=== PATIENT | male | born 1990 | race Two or more races ===

== ENCOUNTER → 2017-03-11 | Outpatient (CLI) | payer OTHER | LOC: BMCIMAGING 11:12 | PROVIDERS: ATTEND Emergency Medicine | DX: S52.614A Nondisplaced fracture of right ulna styloid process, initial encounter for closed fracture (principal) ==

== ENCOUNTER → 2017-03-19 | Outpatient (CLI) | payer OTHER | LOC: BMCIMAGING 11:24 | PROVIDERS: ATTEND Orthopaedic Surgery Hand Surgery | DX: S52.614D Nondisplaced fracture of right ulna styloid process, subsequent encounter for closed fracture with routine healing (principal) ==